=== PATIENT | male | born 1980 | race Caucasian/White ===

== ENCOUNTER 2024-06-02 10:05 | Emergency (ER) | payer OTHER | END 2024-06-02 11:10 | disposition home or self-care (01) | LOC: CSHERS 10:05 | DX: S61.452A Open bite of left hand, initial encounter (principal); F17.210 Nicotine dependence, cigarettes, uncomplicated; Z55.6 Problems related to health literacy; W54.0XXA Bitten by dog, initial encounter ==

== ENCOUNTER 2025-07-12 14:27 | Emergency (ER) | payer OTHER ==
[2025-07-12] MEDS ORDERED: Ketorolac Tromethamine 30 MG (1 mL) VIAL ONE (15:45)
== END 2025-07-12 17:00 | disposition home or self-care (01) ==
LOC: CSHERS 14:27
DX: M25.511 Pain in right shoulder (principal); F17.210 Nicotine dependence, cigarettes, uncomplicated
CPT/HCPCS: 96372; 99283; J1885